=== PATIENT | female | born 1980 | race Caucasian/White ===

== ENCOUNTER → 2016-09-30 | Outpatient (CLI) | payer OTHER ==
[2016-07-12 15:00] VITALS: BP 121/70
[~2016-09-30] MED LIST: ALPR0.25 PO; AMOX875T PO; ASPI-482 PO; ATEN50TA PO; Acetazolamide PO; CEFD300C PO; CLIN-44 PO; DESV100T PO; DIAZ10TA5; DULO60CA6 PO; FENT1PAT15; FENT1PAT17 TP; HYDR-971 PO; IBUP800T2; METO-269 PO; METO100T11 PO; MONT10TA9 PO; NICO1PAT25 TP; Nicotine TD; OLME20TA PO; ONDA-35 PO; OXYC-244 PO; OXYC-323 PO; PANT40TA3 PO; PANT40TA5 PO; POLY255P; RIZA5TAB7 PO; SERT50TA PO; SERT50TA8 PO; TIOT4MIS3 INH; TOPI-24 PO; VALIUM10 MG PO; ZOLP10TA PO
[2016-09-30 11:08] LABS: GFR 63.9
== END | disposition home or self-care (01) ==
LOC: LAB 10:42
PROVIDERS: ATTEND Psychiatry & Neurology Neurology
DX: G43.719 Chronic migraine without aura, intractable, without status migrainosus (principal)
CPT/HCPCS: 36415; 80051; 82565; 84520

== ENCOUNTER → 2016-11-22 | Outpatient (CLI) | payer OTHER ==
[2016-07-12 15:00] VITALS: BP 121/70
[~2016-11-22] MED LIST changes: +IOHEXOL 240 MG/ML 50ML VIAL. PO ONE; +IOHEXOL 300 MG/ML 100ML VIAL. IV ONE
--- NOTE | 2016-11-22 13:19 | KCIC ---
PROCEDURE CT of the abdomen and pelvis with and without contrast HISTORY Generalized abdominal pain. History of shunt, with shunt in the hernia. TECHNIQUE As per request, images are obtained before and after intravenous contrast administration. Oral contrast was administered. Exposure: One or more of the following individualized dose reduction techniques were utilized for this exam: 1. Automated exposure control. 2. Adjustment of the mA and/or kV according to patient size. 3. Use of iterative reconstruction technique. COMPARISON March 27, 2016. FINDINGS Lung bases are clear. Liver unremarkable. Spleen borderline enlarged at 13.3 centimeters, similar to prior study. Pancreas unremarkable. No adrenal mass. There is a small low-density lesion at the upper pole the right kidney, too small to accurately characterize but may represent a small cyst. This was also identified on the prior study. Surgical clips in the gallbladder fossa The aorta is non aneurysmal. No evidence of significant lymph node enlargement. No evidence of bowel obstruction. Mild retained stool in the colon. No evidence of pericolonic inflammation. The appendix appears normal Minimal free pelvic fluid is identified. The urinary bladder is not distended. There is a shunt catheter extending from the thecal sac into the peritoneal cavity. There is an anterior abdominal wall hernia, which has increased in size since the prior study but only contains fat on today's exam. There is looping of the shunt catheter within this hernia. IMPRESSION 1. Borderline splenomegaly is unchanged. 2. Fat containing anterior abdominal wall hernia appears slightly larger. Shunt catheter is looped within the hernia. Electronically signed by: Rolando Ron MD (Nov 22, 2016 13:18:05)
== END | disposition home or self-care (01) ==
LOC: KCIC CT 10:53
PROVIDERS: ATTEND Family Medicine
DX: K43.9 Ventral hernia without obstruction or gangrene (principal)
CPT/HCPCS: 74178; Q9966; Q9967

== ENCOUNTER 2017-04-04 18:23 | Emergency (ER) | payer OTHER ==
[~2017-04-04] VITALS: Ht 160 cm; Wt 104.3 kg
[~2017-04-04 18:23] MED LIST changes: -CLIN-44 PO; +CLIN150C14 PO; +IBUP800T19; -IBUP800T2; -IOHEXOL 240 MG/ML 50ML VIAL. PO ONE; -IOHEXOL 300 MG/ML 100ML VIAL. IV ONE; -OLME20TA PO; +OLME20TA19 PO; -ONDA-35 PO; +ONDA4TAB11 PO; -OXYC-244 PO; +OXYC-327 PO; -TOPI-24 PO; +TOPI25TA7 PO
--- NOTE | 2017-04-04 18:38 | PHYS DOC ---
Past Medical History Past Medical History: Asthma, Hypertension, Migraines, Other Additional Past Medical Histor: Pseudotumor cerebri Past Surgical History: Cholecystectomy, Hysterectomy, Tubal ligation, Other Additional Past Surgical Histo: WHITE WASHER shunt Alcohol Use: None Drug Use: Marijuana Adult General Chief Complaint Chief Complaint: HEADACHE HPI HPI Patient is a 36 year old female who presents with 1 day history of typical gradual onset of migraine headache moderate severity no radiation of the pain; no blurry vision; no fever; no head injury; history of pseudotumor and WHITE WASHER shunt with no complications. Has headaches similar to this about 3 times a week but this one was unresponsive to medications which is not completely unusual for her. Review of Systems Review of Systems Constitutional: Denies fever or chills [] Eyes: Denies change in visual acuity, redness, or eye pain [] HENT: Denies nasal congestion or sore throat [] Respiratory: Denies cough or shortness of breath [] Cardiovascular: No additional information not addressed in HPI [] GI: Denies abdominal pain, nausea, vomiting, bloody stools or diarrhea [] : Denies dysuria or hematuria [] Musculoskeletal: Denies back pain or joint pain [] Integument: Denies rash or skin lesions [] Neurologic: Denies headache, focal weakness or sensory changes [] Endocrine: Denies polyuria or polydipsia [] Current Medications Current Medications Current Medications Medications (Trade) Dose Ordered Sig/Jhoana Start Time Stop Time Status Last Admin Dose Admin Diphenhydramine HCl (Benadryl) 25 mg 1X ONCE 04/04/17 18:45 04/04/17 18:46 DC 04/04/17 18:49 25 MG Hydromorphone HCl (Dilaudid) 1 mg 1X ONCE 04/04/17 19:15 04/04/17 19:19 DC 04/04/17 19:38 1 MG Ketorolac Tromethamine (Toradol) 30 mg 1X ONCE 04/04/17 18:45 04/04/17 18:46 DC 04/04/17 18:50 30 MG Metoclopramide HCl (Reglan) 5 mg 1X ONCE 04/04/17 18:45 04/04/17 18:46 DC 04/04/17 18:49 5 MG Sodium Chloride 1,000 ml @ 1,000 mls/hr 1X ONCE 04/04/17 18:45 04/04/17 19:44 DC 04/04/17 18:50 1,000 MLS/HR Allergies Allergies Allergies Coded Allergies Type Severity Reaction Last Updated Verified latex Allergy Intermediate rash 03/12/16 Yes Sulfa (Sulfonamide Antibiotics) Adverse Reaction Intermediate Nausea and Vomiting 07/02/16 Yes cephalexin Adverse Reaction Intermediate Rash 07/02/16 Yes ciprofloxacin Adverse Reaction Intermediate Nausea and Vomiting 03/12/16 Yes clindamycin Adverse Reaction Intermediate Nausea and Vomiting 07/02/16 Yes morphine Adverse Reaction Intermediate violent behavior 03/12/16 Yes Physical Exam Physical Exam Constitutional: Well developed, well nourished, no acute distress, non-toxic appearance. [] HENT: Normocephalic, atraumatic, bilateral external ears normal, oropharynx moist, no oral exudates, nose normal. [] Eyes: PERRLA, EOMI, conjunctiva normal, no discharge. [] Neck: Normal range of motion, no tenderness, supple, no stridor. [] Cardiovascular:Heart rate regular rhythm, no murmur [] Lungs & Thorax: Bilateral breath sounds clear to auscultation [] Abdomen: Bowel sounds normal, soft, no tenderness, no masses, no pulsatile masses. [] Skin: Warm, dry, no erythema, no rash. [] Back: No tenderness, no CVA tenderness. [] Extremities: No tenderness, no cyanosis, no clubbing, ROM intact, no edema. [] Neurologic: Alert and oriented X 3, normal motor function, normal sensory function, no focal deficits noted. [] Psychologic: Affect normal, judgement normal, mood normal. [] Current Patient Data Vital Signs Vital Signs Date Time Temp Pulse Resp B/P (MAP) Pulse Ox O2 Delivery O2 Flow Rate FiO2 04/04/17 19:41 17 112/67 (82) 97 Room Air 04/04/17 18:59 66 04/04/17 18:34 98.2 98.2 EKG EKG [] Radiology/Procedures Radiology/Procedures [] Course & Med Decision Making Course & Med Decision Making Pertinent Labs and Imaging studies reviewed. (See chart for details) The patient is not ill-appearing and has a benign exam normal neurologic exam. No emergent indication for CT scanning. Plan will be to treat with medications. The patient improved with treatment and is stable for dismissal. [] Dragon Disclaimer Dragon Disclaimer This electronic medical record was generated, in whole or in part, using a voice recognition dictation system. Departure Departure Impression: Primary Impression: Migraine headache Disposition: 01 HOME, SELF-CARE Condition: IMPROVED Referrals: RODRIGO MEDEROS MD (PCP) Patient Instructions: Migraine Headache, [id number] JOYCE MAYS MD Apr 04, 2017 18:38
[2017-04-04] MEDS ORDERED: IV NORMAL SALINE 1000ML BAG 1,000 ML IV ONE (18:45)
[2017-04-04] MEDS ORDERED: KETOROLAC TROMETHAMINE 30 MG/ML INJ. IV ONE (18:45)
[2017-04-04] MEDS ORDERED: diphenhydrAMINE 50 MG/ML VIAL IVP ONE (18:45)
[2017-04-04] MEDS ORDERED: METOCLOPRAMIDE HCL 10 MG/2 ML VIAL. IV ONE (18:45)
[2017-04-04] MEDS ORDERED: HYDROmorphone 2 MG/ML VIAL IV ONE (19:15)
[2017-04-04 19:41] VITALS: BP 112/67
== END 2017-04-04 19:58 | disposition home or self-care (01) ==
LOC: ER 18:23
DX: G43.909 Migraine, unspecified, not intractable, without status migrainosus (principal); I10 Essential (primary) hypertension; J45.909 Unspecified asthma, uncomplicated; Z88.5 Allergy status to narcotic agent; Z88.2 Allergy status to sulfonamides; Z88.1 Allergy status to other antibiotic agents; Z91.040 Latex allergy status
CPT/HCPCS: 96361; 96374; 96375; 99284; J1170; J1200; J1885; J2765; J7030

== ENCOUNTER 2017-10-31 16:48 | Emergency (ER) | payer BC, OTHER ==
[2017-10-31] MEDS ORDERED: KETAMINE HCL 500 MG/10 ML VIAL. IV (18:00)
[2017-10-31 18:03] LABS: ADD MAN DIFF? NO
[2017-10-31 18:05] LABS: BASO % 1 % (0-3); EOS # 0.2 x10^3/uL (0.0-0.7); EOS % 3 % (0-3); HEMATOCRIT 41.9 % (36.0-47.0); HEMOGLOBIN 14.1 g/dL (12.0-15.5); LYMPH # 2.1 x10^3/uL (1.0-4.8); LYMPH % 35 % (24-48); MEAN CORPUSCULAR HEMOGLOBIN 31 pg (25-35); MEAN CORPUSCULAR HGB CONC 34 g/dL (31-37); MEAN CORPUSCULAR VOLUME 93 fL (79-100); MONO # 0.5 x10^3/uL (0.0-1.1); MONO % 8 % (0-9); NEUT # 3.3 x10^3uL (1.8-7.7); NEUT % 55 % (31-73); PLATELET COUNT 215 x10^3/uL (140-400); RED BLOOD COUNT 4.53 x10^6/uL (3.50-5.40); RED CELL DISTRIBUTION WIDTH 13.4 % (11.5-14.5); WHITE BLOOD COUNT 6.1 x10^3/uL (4.0-11.0)
[2017-10-31] MEDS: diphenhydrAMINE 50 MG/ML VIAL IVP (18:08)
[2017-10-31] MEDS: IV NORMAL SALINE 1000ML BAG 1,000 ML IV (18:08)
[2017-10-31] MEDS: METOCLOPRAMIDE HCL 10 MG/2 ML VIAL. IV (18:09)
[2017-10-31] MEDS: DEXAMETHASONE SOD PHOS 20 MG/5 ML VIAL. IV (18:09)
[2017-10-31 18:12] LABS: ANION GAP 7 (6-14); BLOOD UREA NITROGEN 13 mg/dL (7-20); CALCIUM 9.1 mg/dL (8.5-10.1); CARBON DIOXIDE 26 mmol/L (21-32); CHLORIDE 110 mmol/L (98-107); GFR 63.1; GLUCOSE 87 mg/dL (70-99); POTASSIUM 3.7 mmol/L (3.5-5.1); SODIUM 143 mmol/L (136-145)
[2017-10-31] MEDS ORDERED: PROCHLORPERAZINE 10 MG/2 ML VIAL. IV (20:00)
[2017-10-31] MEDS ORDERED: diphenhydrAMINE 50 MG/ML VIAL IVP (20:00)
[2017-10-31] MEDS ORDERED: IV NORMAL SALINE 1000ML BAG 1,000 ML IV (20:00)
[2017-10-31] MEDS ORDERED: HALOPERIDOL LACTATE 5 MG/ML VIAL. IM (20:00)
[2017-10-31] MEDS ORDERED: KETOROLAC 15 MG/ML VIAL. IV (20:00)
== END 2017-10-31 19:59 | disposition left against medical advice (07) ==
LOC: ER 16:48
DX: G44.59 Other complicated headache syndrome (principal); I10 Essential (primary) hypertension; G43.909 Migraine, unspecified, not intractable, without status migrainosus; J45.909 Unspecified asthma, uncomplicated; F12.10 Cannabis abuse, uncomplicated; Z88.2 Allergy status to sulfonamides; Z88.1 Allergy status to other antibiotic agents; Z88.5 Allergy status to narcotic agent; Z91.040 Latex allergy status
CPT/HCPCS: 36415; 80048; 85025; 96361; 96374; 96375; 99284-25; J1100; J1200; J2765; J7030

== ENCOUNTER 2018-06-03 13:36 | Emergency (ER) | payer BC, OTHER ==
[~2018-06-03] VITALS: Ht 160 cm; Wt 98.4 kg
[~2018-06-03 13:36] MED LIST changes: +METO-247 PO; -METO100T11 PO; +OLME20TA17 PO; -OLME20TA19 PO
[2018-06-03] MEDS ORDERED: IV NORMAL SALINE 1000ML BAG 1,000 ML IV SCH (14:03)
[2018-06-03] MEDS ORDERED: IOHEXOL 300 MG/ML 100ML VIAL. IV ONE (14:15)
[2018-06-03] MEDS ORDERED: CONTRAST GIVEN. MC PRN (14:30)
--- NOTE | 2018-06-03 14:30 | PHYS DOC ---
Past Medical History Past Medical History: Asthma, Hypertension, Migraines, Other Additional Past Medical Histor: Pseudotumor cerebri Past Surgical History: Cholecystectomy, Hysterectomy, Tubal ligation, Other Additional Past Surgical Histo: BULKHEAD CARPENTER shunt, hernia repair Alcohol Use: None Drug Use: Marijuana Adult General Chief Complaint Chief Complaint: FLANK PAIN HPI HPI Patient is a 37 year old F who states that at the beginning of the month, around May 12 or she had a BULKHEAD CARPENTER shunt revision by Dr. Vallejo, neurosurgeon at [facility]. She states she has been recovering well since that time but then over the last few days she developed sharp RLQ pain and nausea. She isn't sure if it related to her prior surgery or not. She denies fevers but has felt chilled. She reports normal BM. She has had prior cholecystectomy and prior hysterectomy. Review of Systems Review of Systems Constitutional: Denies fever. Reports chills. Respiratory: Denies cough or shortness of breath Cardiovascular: Denies chest pain GI: Denies vomiting, constipation or diarrhea. Reports abdominal pain and nausea. : Denies dysuria or hematuria Musculoskeletal: Reports R flank pain Integument: Denies rash or skin lesions Neurologic: Denies headache, focal weakness or sensory changes Endocrine: Denies polyuria or polydipsia All other systems were reviewed and found to be within normal limits, except as documented in this note. Current Medications Current Medications Current Medications Medications (Trade) Dose Ordered Sig/Jhoana Start Time Stop Time Status Last Admin Dose Admin Fentanyl Citrate (Fentanyl 2ml Vial) 50 mcg 1X ONCE 06/03/18 15:30 06/03/18 15:31 DC Info (CONTRAST GIVEN -- Rx MONITORING) 1 each PRN DAILY PRN 06/03/18 14:30 06/03/18 16:35 DC Iohexol (Omnipaque 300 Mg/ml) 75 ml 1X ONCE 06/03/18 14:15 06/03/18 14:16 DC 06/03/18 14:15 60 ML Sodium Chloride 1,000 ml @ 100 mls/hr Q10H 06/03/18 14:03 06/03/18 16:35 DC 06/03/18 14:38 100 MLS/HR Allergies Allergies Allergies Coded Allergies Type Severity Reaction Last Updated Verified latex Allergy Intermediate rash 03/12/16 Yes Sulfa (Sulfonamide Antibiotics) Adverse Reaction Intermediate Nausea and Vomiting 07/02/16 Yes cephalexin Adverse Reaction Intermediate Rash 07/02/16 Yes ciprofloxacin Adverse Reaction Intermediate Nausea and Vomiting 03/12/16 Yes clindamycin Adverse Reaction Intermediate Nausea and Vomiting 07/02/16 Yes morphine Adverse Reaction Intermediate violent behavior 03/12/16 Yes Physical Exam Physical Exam Constitutional: Well developed, well nourished, no acute distress, non-toxic appearance. HENT: Normocephalic, atraumatic, bilateral external ears normal, oropharynx moist, no oral exudates, nose normal. Neck: Normal range of motion, no tenderness, supple, no stridor. Cardiovascular:Heart rate regular rhythm, no murmur Lungs & Thorax: Bilateral breath sounds clear to auscultation Abdomen: Bowel sounds normal, abd soft, Tender to palpation in RLQ, no rebound, no guarding, no psoas pain, ambulating without pain Skin: Surgical incisions on abd are healing well, no signs of infection Back: R flank tender Extremities: No tenderness, no cyanosis, no clubbing, ROM intact, no edema. Neurologic: Alert and oriented X 3, normal motor function, normal sensory function, no focal deficits noted. Psychologic: Affect normal, judgement normal, mood normal. Current Patient Data Vital Signs Vital Signs Date Time Temp Pulse Resp B/P (MAP) Pulse Ox O2 Delivery O2 Flow Rate FiO2 06/03/18 16:22 62 18 136/78 (97) 98 Room Air 06/03/18 13:48 98.9 98.9 Lab Values Laboratory Tests Test 06/03/18 13:50 06/03/18 14:25 Urine Collection Type Unknown Urine Color Yellow Urine Clarity Clear Urine pH 6.5 Urine Specific [place] 1.020 Urine Protein Negative mg/dL (NEG-TRACE) Urine Glucose (UA) Negative mg/dL (NEG) Urine Ketones (Stick) Negative mg/dL (NEG) Urine Blood Negative (NEG) Urine Nitrite Negative (NEG) Urine Bilirubin Negative (NEG) Urine Urobilinogen Dipstick 0.2 mg/dL (0.2 mg/dL) Urine Leukocyte Esterase Negative (NEG) Urine RBC 0 /HPF (0-2) Urine WBC 0 /HPF (0-4) Urine Squamous Epithelial Cells Mod /LPF Urine Transitional Epithelial Cells Few /LPF Urine Bacteria Moderate /HPF (0-FEW) Urine Mucus Slight /LPF White Blood Count 5.1 x10^3/uL (4.0-11.0) Red Blood Count 4.23 x10^6/uL (3.50-5.40) Hemoglobin 13.4 g/dL (12.0-15.5) Hematocrit 38.9 % (36.0-47.0) Mean Corpuscular Volume 92 fL (79-100) Mean Corpuscular Hemoglobin 32 pg (25-35) Mean Corpuscular Hemoglobin Concent 34 g/dL (31-37) Red Cell Distribution Width 13.5 % (11.5-14.5) Platelet Count 221 x10^3/uL (140-400) Neutrophils (%) (Auto) 59 % (31-73) Lymphocytes (%) (Auto) 28 % (24-48) Monocytes (%) (Auto) 7 % (0-9) Eosinophils (%) (Auto) 6 % (0-3) H Basophils (%) (Auto) 1 % (0-3) Neutrophils # (Auto) 3.0 x10^3uL (1.8-7.7) Lymphocytes # (Auto) 1.4 x10^3/uL (1.0-4.8) Monocytes # (Auto) 0.4 x10^3/uL (0.0-1.1) Eosinophils # (Auto) 0.3 x10^3/uL (0.0-0.7) Basophils # (Auto) 0.0 x10^3/uL (0.0-0.2) Prothrombin Time 13.4 SEC (11.7-14.0) Prothrombin Time INR 1.1 (0.8-1.1) PTT 26 SEC (24-38) Sodium Level 145 mmol/L (136-145) Potassium Level 4.1 mmol/L (3.5-5.1) Chloride Level 112 mmol/L (98-107) H Carbon Dioxide Level 24 mmol/L (21-32) Anion Gap 9 (6-14) Blood Urea Nitrogen 12 mg/dL (7-20) Creatinine 1.1 mg/dL (0.6-1.0) H Estimated GFR (Cockcroft-Gault) 56.5 BUN/Creatinine Ratio 11 (6-20) Glucose Level 77 mg/dL (70-99) Calcium Level 9.0 mg/dL (8.5-10.1) Total Bilirubin 0.2 mg/dL (0.2-1.0) Aspartate Amino Transferase (AST) 8 U/L (15-37) L Alanine Aminotransferase (ALT) 12 U/L (14-59) L Alkaline Phosphatase 50 U/L (46-116) Total Protein 6.2 g/dL (6.4-8.2) L Albumin 3.3 g/dL (3.4-5.0) L Albumin/Globulin Ratio 1.1 (1.0-1.7) Lipase 193 U/L (73-393) Laboratory Tests 06/03/18 14:25 Laboratory Tests 06/03/18 14:25 EKG EKG [] Radiology/Procedures Radiology/Procedures CT showed no acute process. I did call and discuss CT with radiologist, Dr. Parrish and he confirmed that the appendix does appear normal. No signs of inflammation or stranding. No signs of appendicitis. Course & Med Decision Making Course & Med Decision Making Pertinent Labs and Imaging studies reviewed. (See chart for details) Labs and CT are reassuring. No signs of post operative complications, no signs of appendicitis or bowel infection. No signs of UTI or hydronephrosis. Discussed that pt needs to f/u with her surgeon on Tuesday. She does report that she is out of her pain medicine. Will write for enough to get her through this weekend but discussed that she would need to discuss further pain medication with her surgeon. Pt recommended to rest, push fluids, bland diet and return with any worsening symptoms. Of note pt has had no headaches or head pressure or any signs of BULKHEAD CARPENTER shunt dysfunction. I discussed this with her in length and she feels that is working properly. Dragon Disclaimer Dragon Disclaimer This electronic medical record was generated, in whole or in part, using a voice recognition dictation system. Departure Departure Impression: Primary Impression: Abdominal pain Disposition: HOME, SELF-CARE Condition: IMPROVED Referrals: RODRIGO MEDREOS MD (PCP) Patient Instructions: Abdominal Pain Additional Instructions: Please contact your surgeon on Tuesday to discuss your ER visit and your continued pain. Rest, bland diet, push fluids and return with any worsening of symptoms. Scripts Ondansetron (ZOFRAN ODT) 4 Mg Tab.rapdis 1 TAB SL Q8HRS, #10 TAB Prov: RANJIT KEMP 06/03/18 Oxycodone/Apap 10-325 (PERCOCET 10-325 MG TABLET) 1 Each Tablet 1 TAB PO Q4-6HRS for 2 Days, #8 TAB Prov: RANJIT KEMP 06/03/18 RANJIT KEMP Jun 03, 2018 14:30
[2018-06-03 14:31] LABS: BILIRUBIN,URINE NEGATIVE (NEG); CLARITY,URINE CLEAR; COLOR,URINE YELLOW; NITRITE,URINE NEGATIVE (NEG); PH,URINE 6.5; PROTEIN,URINE NEGATIVE (NEG-TRACE); UROBILINOGEN,URINE 0.2 mg/dL (0.2 mg/dL)
[2018-06-03] MEDS: fentaNYL PF VIAL 100 MCG/2 ML VIAL IV PRN ×2 (14:39→15:41)
[2018-06-03 14:40] LABS: CREATININE 1.1 mg/dL (0.6-1.0); GFR 56.5; POTASSIUM 4.1 mmol/L (3.5-5.1)
[2018-06-03 14:47] LABS: BASO % 1 % (0-3); EOS # 0.3 x10^3/uL (0.0-0.7); EOS % 6 % (0-3); HEMATOCRIT 38.9 % (36.0-47.0); HEMOGLOBIN 13.4 g/dL (12.0-15.5); LYMPH # 1.4 x10^3/uL (1.0-4.8); LYMPH % 28 % (24-48); MEAN CORPUSCULAR HEMOGLOBIN 32 pg (25-35); MEAN CORPUSCULAR HGB CONC 34 g/dL (31-37); MEAN CORPUSCULAR VOLUME 92 fL (79-100); MONO # 0.4 x10^3/uL (0.0-1.1); MONO % 7 % (0-9); NEUT % 59 % (31-73); PLATELET COUNT 221 x10^3/uL (140-400); RED BLOOD COUNT 4.23 x10^6/uL (3.50-5.40); RED CELL DISTRIBUTION WIDTH 13.5 % (11.5-14.5); WHITE BLOOD COUNT 5.1 x10^3/uL (4.0-11.0)
[2018-06-03 14:49] LABS: ALBUMIN 3.3 g/dL (3.4-5.0); ALBUMIN/GLOBULIN RATIO 1.1 (1.0-1.7); TOTAL BILIRUBIN 0.2 mg/dL (0.2-1.0); TOTAL PROTEIN 6.2 g/dL (6.4-8.2)
[2018-06-03 14:56] LABS: PROTHROMBIN TIME PATIENT 13.4 SEC (11.7-14.0)
[2018-06-03 15:00] LABS: BACTERIA,URINE MODERATE /HPF (0-FEW); RBC,URINE 0 /HPF (0-2); SQUAMOUS EPITHELIAL CELL,UR MOD /LPF; WBC,URINE 0 /HPF (0-4)
[2018-06-03] MEDS ORDERED: fentaNYL PF VIAL 100 MCG/2 ML VIAL IV ONE (15:30)
--- NOTE | 2018-06-03 15:41 | RAD ---
CT scan of the abdomen and pelvis with contrast 06/03/2018 CLINICAL HISTORY: Right-sided lower abdominal pain. TECHNIQUE: After the intravenous administration of 60 cc of Omnipaque 300, contiguous, 5 mm axial sections were obtained through the abdomen and pelvis. One or more of the following individualized dose reduction techniques were utilized for this study: 1. Automated exposure control. 2. Adjustment of the mA and/or kV according to patient size. 3. Use of iterative reconstruction technique. FINDINGS: Comparison study is dated 11/22/2016. Images through the lung bases are within normal limits. The liver, spleen, pancreas, adrenal glands and kidneys are within normal limits. The abdominal aorta tapers normally. Surgical clips are seen within the gallbladder fossa consistent with a cholecystectomy no free fluid or free air is within the abdomen. There is no evidence of bowel obstruction. A a catheter is seen coiled within the thoracic spinal canal. The inferior aspect of the catheter extends in the right lateral aspect of central spinal canal at L1. The catheter after coiling in the distal thoracic spinal canal extends inferiorly and exits the central spinal canal at the L2 level and extends posteriorly and laterally to the right within the subcutaneous fat. A reservoir/interconnecting device is seen within the subcutaneous fat of the right lateral midabdomen. Tubing extends from this region and is looped within the anterior abdomen near an area which appears to correspond to a recent ventral hernia repair. The distal end of the catheter extends into the peritoneal cavity within the inferior pelvis. No abnormal fluid collection is seen surrounding the catheter tip. Images through the pelvis demonstrate the urinary bladder distended with urine. Calcifications are seen within the pelvis consistent with phleboliths. A small amount of free fluid is seen within the pelvis. This may be related to the presence of shunt. Calcifications are seen within the pelvis consistent with phleboliths. Minimal S-shaped curvature of the thoracolumbar spine is seen. IMPRESSION: 1. Spinal peritoneal shunt position as outlined above. 2. No acute abnormality is seen. Electronically signed by: Phoenix Parrish MD (06/03/2018 3:39 PM) [facility] [place]
[2018-06-03] MEDS ORDERED: ONDA4TAB10 SL (16:19)
[2018-06-03] MEDS ORDERED: OXYC-328 PO (16:19)
[2018-06-03 16:22] VITALS: BP 136/78
== END 2018-06-03 16:32 | disposition home or self-care (01) ==
LOC: ER 13:36
DX: R10.31 Right lower quadrant pain (principal); R11.0 Nausea; I10 Essential (primary) hypertension; G43.909 Migraine, unspecified, not intractable, without status migrainosus; J45.909 Unspecified asthma, uncomplicated; Z90.49 Acquired absence of other specified parts of digestive tract; Z90.710 Acquired absence of both cervix and uterus; Z98.51 Tubal ligation status; Z98.890 Other specified postprocedural states; Z88.5 Allergy status to narcotic agent; Z88.2 Allergy status to sulfonamides; Z88.1 Allergy status to other antibiotic agents; Z91.040 Latex allergy status
CPT/HCPCS: 36415; 74177; 80053; 81001; 83690; 85025; 85610; 85730; 96374; 96376; 99285; J3010; J7030; Q9967; 87086; 87186

== ENCOUNTER → 2019-07-30 | Outpatient (CLI) | payer OTHER ==
[2018-09-16 20:51] VITALS: BP 135/69
[~2019-07-30] MED LIST changes: +HYDR-3164 PO; -HYDR-971 PO; +MONT10TA49 PO; -MONT10TA9 PO; +ONDA4TAB10 SL; -OXYC-323 PO; -OXYC-327 PO; +OXYC1TAB15 PO; +OXYC1TAB19 PO; +OXYC1TAB22 PO; -PANT40TA3 PO; -PANT40TA5 PO; +PANT40TA77 PO; -POLY255P; +POLY255P11
[2019-07-30 14:51] LABS: CALCIUM 9.5 mg/dL (8.5-10.1); GFR 62.7; POTASSIUM 3.6 mmol/L (3.5-5.1); TOTAL BILIRUBIN 0.2 mg/dL (0.2-1.0); TOTAL PROTEIN 7.9 g/dL (6.4-8.2)
[2019-07-30 15:02] LABS: BASO % 0 % (0-3); EOS # 0.1 x10^3/uL (0.0-0.7); EOS % 1 % (0-3); HEMOGLOBIN 15.1 g/dL (12.0-15.5); LYMPH # 1.5 x10^3/uL (1.0-4.8); LYMPH % 20 % (24-48); MEAN CORPUSCULAR HEMOGLOBIN 31 pg (25-35); MEAN CORPUSCULAR HGB CONC 34 g/dL (31-37); MEAN CORPUSCULAR VOLUME 94 fL (79-100); MONO # 0.4 x10^3/uL (0.0-1.1); MONO % 6 % (0-9); NEUT # 5.6 x10^3/uL (1.8-7.7); NEUT % 74 % (31-73); PLATELET COUNT 323 x10^3/uL (140-400); RED CELL DISTRIBUTION WIDTH 13.4 % (11.5-14.5); WHITE BLOOD COUNT 7.5 x10^3/uL (4.0-11.0)
== END | disposition home or self-care (01) ==
LOC: LAB 13:52
PROVIDERS: ATTEND Psychiatry & Neurology Neurology
DX: G93.2 Benign intracranial hypertension (principal)
CPT/HCPCS: 36415; 80053; 85025